=== PATIENT | female | born 1985 | race African-American/Black ===

== ENCOUNTER 2017-06-27 20:35 | Emergency (ER) | payer OTHER ==
[~2017-06-27] VITALS: Ht 162.6 cm; Wt 154.2 kg
== END 2017-06-27 22:05 | disposition home or self-care (01) ==
LOC: CED 20:35 → CFTX 20:35
DX: S23.3XXA Sprain of ligaments of thoracic spine, initial encounter (principal); F17.210 Nicotine dependence, cigarettes, uncomplicated; V49.40XA Driver injured in collision with unspecified motor vehicles in traffic accident, initial encounter
CPT/HCPCS: 99283